=== PATIENT | female | born 1940 | race Caucasian/White ===

== ENCOUNTER 2019-05-20 12:25 | Outpatient (CLI) | payer MEDICARE, OTHER ==
[2019-05-20 17:47] LABS: HGB - HEMOGLOBIN 14.7 g/dL (12.0-16.0); MEAN CORPUSCULAR HGB CONC 33.4 g/dL (32.0-36.0); MEAN CORPUSCULAR VOLUME 95.7 fL (81.0-99.0); MEAN PLATELET VOLUME 11.9 fL (7.9-10.8); RED BLOOD COUNT 4.6 10^6/uL (4.20-5.40); RED CELL DISTRIBUTION WIDTH 12.8 % (12.0-15.0); WHITE BLOOD COUNT 5.9 x10^3/uL (4.8-10.8)
[2019-05-20 18:53] LABS: RHEUMATOID FACTOR NEGATIVE (Negative)
[2019-05-23 14:52] LABS: ANA SCREEN NEGATIVE (NEGATIVE)
== END 2019-05-20 12:26 | disposition home or self-care (01) ==
LOC: LAB.S 12:25
PROVIDERS: ATTEND Nurse Practitioner
DX: M35.3 Polymyalgia rheumatica (principal)
CPT/HCPCS: 36415; 85027; 85651; 86038; 86140; 86200; 86430

== ENCOUNTER 2019-06-20 08:00 | Outpatient (CLI) | payer MEDICARE, OTHER ==
[2019-06-20 20:18] LABS: BILIRUBIN,URINE NEGATIVE (NEGATIVE); GLUCOSE, URINE (UA) NEGATIVE (NEGATIVE); KETONES,URINE (UA) NEGATIVE (NEGATIVE); LEUKOCYTE ESTERASE, URINE TRACE (NEGATIVE); NITRITE,URINE NEGATIVE (NEGATIVE); OCCULT BLOOD,URINE NEGATIVE (NEGATIVE); PROTEIN,URINE NEGATIVE (NEGATIVE); UROBILINOGEN,URINE 0.2 (NORMAL) E.U./dL (NORMAL)
[2019-06-20 20:30] LABS: CLARITY,URINE HAZY (CLEAR)
[2019-06-20 20:34] LABS: RBC,URINE 0-5 /HPF (0-5); SQUAMOUS EPITHELIAL CELL,UR MOD Squamous (<= Few)
[2019-06-20 20:35] LABS: BACTERIA,URINE Rare /HPF (None Seen)
== END 2019-06-20 08:01 | disposition home or self-care (01) ==
LOC: LAB.R 08:00
PROVIDERS: ATTEND Nurse Practitioner
DX: N39.0 Urinary tract infection, site not specified (principal)
CPT/HCPCS: 81001; 87086

== ENCOUNTER 2019-07-07 14:21 | Outpatient (CLI) | payer MEDICARE, OTHER ==
--- NOTE | 2019-07-07 15:39 | MRI Report ---
Reason: DEGENERATIVE DISC DISEASE LUMBAR SPINE, BACK PAIN Procedure Date: 07/07/2019 Accession Number: [id number] / [id number] Procedure: MRI - Lumbar Spine W/O CPT Code: FULL RESULT: EXAM: MRI LUMBAR SPINE WITHOUT CONTRAST EXAM DATE: 07/07/2019 03:02 PM. CLINICAL HISTORY: 79-year-old female. DEGENERATIVE DISC DISEASE LUMBAR SPINE, BACK PAIN. COMPARISON: None. TECHNIQUE: Multiplanar, multisequence T1-weighted and fluid-sensitive sequences of the lumbar spine from T12 to S1 without contrast. Other: None. FINDINGS: Spinal Canal: The conus terminates at L1. The conus medullaris and cauda equina are unremarkable. Alignment: Rotatory levoscoliosis of the lumbar spine, Villalba angle 18 degrees. Grade 2 anterolisthesis L5 on S1 measuring 11 mm, likely due to bilateral L5 pars fractures. Grade 1 anterolisthesis L4 on L5 measuring 5 mm. Grade 1 retrolisthesis L2 on L3 measuring 2 mm. Grade 1 retrolisthesis L1 on L2 measuring 2 mm. Grade 1 retrolisthesis of T12 on L1 measuring 2 mm. Bone Marrow: Five [id number] lumbar vertebral bodies are assumed. No gross fractures or bone lesions. Modic type I degenerative endplate changes with endplate edema at T11-T12, L1-L2, and L3-L4 levels. There is edema involving the L3-L4 facet joints bilaterally and L4-L5 facet joints bilaterally. Disk Levels/Facets: T9-T10: Severe disk height loss and desiccation with mild diffuse disk posterior. No significant central canal narrowing. Moderate left foraminal narrowing. No right foraminal narrowing. T10-T11: Moderate to severe disk height loss and desiccation. Mild diffuse disk bulge. No significant central canal narrowing. Moderate left foraminal narrowing. No right foraminal narrowing. T11-T12: Moderate to severe disk height loss and desiccation. Mild diffuse disk bulge. No significant central canal narrowing. Moderate severe left foraminal narrowing. No right foraminal narrowing. T12-L1: Moderate to severe disk height loss and desiccation. Mild diffuse disk bulge. No significant central canal narrowing. Mild to moderate right foraminal narrowing. No left foraminal narrowing. L1-L2: Severe disk height loss and desiccation. Mild to moderate diffuse disk posterior with superimposed right far lateral disk osteophyte complex. Moderate right facet arthropathy. Mild central canal narrowing. Moderate right foraminal narrowing. No left foraminal narrowing. L2-L3: Severe disk height loss and desiccation. Mild diffuse disk post with endplate spurring. Mild bilateral facet arthropathy. Mild central canal narrowing. Mild to moderate bilateral foraminal narrowing. L3-L4: Severe disk height loss and desiccation. Moderate disk bulge with endplate spurring. Moderate to severe bilateral facet arthropathy. Moderate to severe central canal narrowing. Moderate to severe left and moderate right foraminal narrowing. L4-L5: Moderate disk height loss and desiccation of moderate diffuse disk bulge. Severe bilateral facet arthropathy. Mild to moderate central canal narrowing. Severe bilateral foraminal narrowing. L5-S1: Severe disk height loss and desiccation. Moderate posterior disk osteophyte complex. Severe bilateral facet arthropathy. Moderate central canal narrowing. Moderate bilateral foraminal narrowing. Musculature: Moderate fatty atrophy of the paraspinal musculature. Other: The partially visualized retroperitoneum is unremarkable. IMPRESSION: 1. Severe multilevel degenerative spondylosis, as detailed above and summarized below. No evidence of acute fracture. No cord signal abnormality. 2. Rotatory levoscoliosis of the lumbar spine, Villalba angle 18 degrees. 3. Grade 2 anterolisthesis L5 on S1 measuring 11 mm, likely due to bilateral L5 pars fractures. Grade 1 anterolisthesis L4 on L5 measuring 5 mm. Grade 1 retrolisthesis L2 on L3 measuring 2 mm. Grade 1 retrolisthesis L1 on L2 measuring 2 mm. Grade 1 retrolisthesis of T12 on L1 measuring 2 mm. 4. Modic type I degenerative endplate changes with endplate edema at T11-T12, L1-L2, and L3-L4 levels. Modic type I changes may represent a source of pain. 5. There is edema involving the L3-L4 facet joints bilaterally and L4-L5 facet joints bilaterally. In the absence of signs and symptoms of infection, this is likely on the basis of degenerative change and may represent a source of pain. 6. T9-T10: No significant central canal narrowing. Moderate left foraminal narrowing. No right foraminal narrowing. 7. T10-T11: No significant central canal narrowing. Moderate left foraminal narrowing. No right foraminal narrowing. 8. T11-T12: No significant central canal narrowing. Moderate severe left foraminal narrowing. No right foraminal narrowing. 9. T12-L1: No significant central canal narrowing. Mild to moderate right foraminal narrowing. No left foraminal narrowing. 10. L1-L2: Mild central canal narrowing. Moderate right foraminal narrowing. No left foraminal narrowing. 11. L2-L3: Mild central canal narrowing. Mild to moderate bilateral foraminal narrowing. 12. L3-L4: Moderate to severe central canal narrowing. Moderate to severe left and moderate right foraminal narrowing. 13. L4-L5: Mild to moderate central canal narrowing. Severe bilateral foraminal narrowing. 14. 5-S1: Moderate central canal narrowing. Moderate bilateral foraminal narrowing. Comment: The following findings are so common in adults without low back pain that while we report their presence, they must be interpreted with caution and in the context of the clinical situation. (Reference Elainek et al, Spine 2001) Prevalence of findings in patients without low back pain: Disk degeneration (any evidence): 92% Disk desiccation/T2 signal loss: 83% Disk height loss: 56% Disk bulge: 64% Disk protrusion: 32% Annular tear/high intensity zone: 38% RADIA
== END 2019-07-07 14:22 | disposition home or self-care (01) ==
LOC: DI 14:21
PROVIDERS: ATTEND Nurse Practitioner
DX: M51.36 Other intervertebral disc degeneration, lumbar region (principal); M51.34 Other intervertebral disc degeneration, thoracic region; M48.04 Spinal stenosis, thoracic region; M48.061 Spinal stenosis, lumbar region without neurogenic claudication; M47.816 Spondylosis without myelopathy or radiculopathy, lumbar region; M43.16 Spondylolisthesis, lumbar region; M41.9 Scoliosis, unspecified; R60.0 Localized edema
CPT/HCPCS: 72148

== ENCOUNTER 2019-08-07 07:18 | Day surgery (SDC) | payer MEDICARE, OTHER ==
[~2019-08-07 07:18] MED LIST: CYCLOPENTOLATE 1% OPHTH DROPS 2 ML ONE; KETOROLAC 0.45% OPHTH DROPS ONE; PHENYLEPHRINE 2.5% OPHTH 2 ML DROPS ONE; PROPARACAINE 0.5% OPHTH DROPS 15 ML ONE
[2019-08-07] MEDS ORDERED: TIMOLOL 0.5% OPHTH DROPS ONE (07:19)
[2019-08-07] MEDS ORDERED: BRIMONIDINE 0.2% OPHTH DROPS 5 ML ONE (07:19)
[2019-08-07] MEDS ORDERED: BSS/LIDOCAINE/EPINEPHRINE 1 ML SYRINGE ONE (07:19)
[2019-08-07] MEDS ORDERED: TRIAMCIN/MOXIFLOX OPHTHALMIC 0.6 ML VIAL IO ONE (07:19)
[2019-08-07] MEDS ORDERED: MIDAZOLAM 2 MG/2 ML VIAL IVP ONE (07:19)
[2019-08-07] MEDS ORDERED: fentaNYL 100 MCG/2 ML VIAL IVP ONE (07:19)
[2019-08-07] MEDS ORDERED: VANCOMYCIN OPHTHALMI 8MG/0.8ML 8 MG/0.8 ML SYRINGE IO ONE (07:20)
[2019-08-07] MEDS ORDERED: KETOROLAC 0.45% OPHTH DROPS LEFTEYE ONE (07:35)
[2019-08-07] MEDS ORDERED: CYCLOPENTOLATE 1% OPHTH DROPS 2 ML LEFTEYE ONE (07:35)
[2019-08-07] MEDS ORDERED: PROPARACAINE 0.5% OPHTH DROPS 15 ML LEFTEYE ONE ×2 (07:35→08:23)
[2019-08-07] MEDS ORDERED: PHENYLEPHRINE 2.5% OPHTH 2 ML DROPS LEFTEYE ONE (07:35)
--- NOTE | 2019-08-07 07:43 | ANESTHESIA ---
Pre-Anesthesia VS, & Labs - Diagnosis L nuclear sclerotic cataract - Procedure L extraction cataract w/IOL Vital Signs: Temp Pulse Resp BP Pulse Ox 36.1 C L 71 16 169/74 H 97 08/07/19 07:28 08/07/19 07:28 08/07/19 07:28 08/07/19 07:28 08/07/19 07:28 Height 4 ft 10 in Weight (kg) 58 kg - NPO >8 hours Last Fluid Intake: BP meds with sips H20 @06 - Is Patient ?: No Home Medications and Allergies Allergies/Adverse Reactions: Allergies Allergy/AdvReac Type Severity Reaction Status Date / Time cefuroxime [From Ceftin] Allergy Rash Verified 08/06/19 12:58 ciprofloxacin [From Cipro] Allergy Rash Verified 08/06/19 12:58 Anes History & Medical History - Anesthetic History Anesthesia Complications: reports: No previous complications Family history of Anesthesia Complications: Denies Family history of Malignant Hyperthermia: Denies - Medical History Cardiovascular: reports: Hypertension Pulmonary: reports: None Gastrointestinal: reports: Diverticulitis Urinary: reports: None Musculoskeletal: reports: Osteoarthritis, Chronic back pain Endocrine/Autoimmune: reports: None Skin: reports: None - Surgical History General: Colonoscopy, Other Gynecologic: section, Hysterectomy, Other Orthopedic: Knee replacement, Other Exam General: Alert, Oriented x3, Cooperative Dental: WNL Mouth Openin Fingerbreadth Neck Mobility: Normal Mallampati classification: II Thyromental Distance: 4-6 cm Respiratory: Lungs clear, Normal breath sounds, No respiratory distress Cardiovascular: Regular rate (pt states HR is usually irreg. Regular this AM on auscultation) Neurological: Normal speech Mental/Cognitive Status: Alert/Oriented X3, Normal for patient Cognitive Status: Within normal limits Plan Anesthesia Type: MAC Consent for Procedure(s) Verified and Reviewed: Yes Code Status: Attempt Resuscitation ASA classification: 2-Mild systemic disease Is this case an emergency?: No
[2019-08-07] MEDS ORDERED: LACTATED RINGERS 500 ML IV ONE (07:49)
[2019-08-07] MEDS ORDERED: BRIMONIDINE 0.2% OPHTH DROPS 5 ML OPTH ONE (08:30)
[2019-08-07] MEDS ORDERED: EPINEPHrine 1 MG/ML AMP IVP ONE (08:30)
[2019-08-07] MEDS ORDERED: CHONDR SULF/HYALURONATE SYRINGE IO ONE (08:31)
[2019-08-07] MEDS ORDERED: BSS/LIDOCAINE/EPINEPHRINE 1 ML SYRINGE IO ONE (08:31)
[2019-08-07] MEDS ORDERED: TIMOLOL 0.5% OPHTH DROPS OPTH ONE (08:31)
[2019-08-07 09:09] VITALS: BP 143/65
--- NOTE | 2019-08-07 16:00 | OPERATIVE REPORT ---
DATE OF SERVICE: 08/07/2019 Physician: Frandy Daniel MD PREOPERATIVE DIAGNOSIS: Visually significant cataract, left eye. This was her first cataract surger y. POSTOPERATIVE DIAGNOSIS: Visually significant cataract, left eye. This was her first cataract surge ry. PROCEDURE: Phacoemulsification with posterior chamber intraocular lens implant, left eye. SURGEON: Frandy Daniel MD ANESTHESIA: Monitored anesthesia care. COMPLICATIONS: None. OPERATIVE INDICATIONS: This is a 79-year-old woman with progressive vision loss in the left eye due to 3+ nuclear sclerotic cataract. Best corrected visual acuity was 20/50 with glare to hand motion v ision in the left eye. Indications for surgery were overall decrease in vision, difficulty seeing wo rds on the computer screen, difficulty reading, difficulty seeing words, closed caption or game score s on TV, difficulty driving in low light or at night, difficulty driving at night because of headligh ts from other vehicles, and difficulty with glare or bright lights in any situation. She was consent ed at length concerning risks and benefits of cataract surgery, after which she expressed a desire to proceed with surgery. OPERATIVE PROCEDURE: The patient was taken to OR #3 and placed under monitored anesthesia care. Jairo gical timeout was conducted confirming correct patient, correct procedure, and correct surgical site. She was given topical anesthesia, and prepped and draped in the usual sterile fashion. The eye was entered at the 6 and 3 o'clock positions. Intracameral Shugarcaine was injected into the anterior c hamber, followed by Viscoat. A continuous-tear curvilinear capsulorrhexis was performed. Nucleus wa s hydrodissected and phacoemulsified. The cortex was evacuated using automated infusion and aspirati on. Provisc was injected in the capsular bag, and a 23.5 diopter intraocular lens inserted in the ba g. Approximately 0.25 mL of a mixture of triamcinolone and moxifloxacin was injected inserted throug h this transsclerally into the vitreous. An additional 0.55 mL of a mixture of triamcinolone, moxifl oxacin and vancomycin was injected subconjunctivally in the superior quadrant for infection and infla mmation prophylaxis. I and A was used to evacuate the viscoelastic materials. The eye was inflated to physiologic pressure using balanced salt solution and found to be watertight. The patient was paz en from the operating room in good condition and given postoperative instructions. TD: 08/07/2019 08:49
== END 2019-08-07 07:19 | disposition home or self-care (01) ==
LOC: SDS 07:18
PROVIDERS: ATTEND Ophthalmology
PROC: 08RK3JZ Replacement of Left Lens with Synthetic Substitute, Percutaneous Approach (ICD-10-PCS; principal; 2019-08-07 08:30)
DX: H25.12 Age-related nuclear cataract, left eye (principal); I10 Essential (primary) hypertension; M19.90 Unspecified osteoarthritis, unspecified site; G89.29 Other chronic pain; M54.9 Dorsalgia, unspecified; K58.9 Irritable bowel syndrome, unspecified; Z96.659 Presence of unspecified artificial knee joint; E78.00 Pure hypercholesterolemia, unspecified; Z85.3 Personal history of malignant neoplasm of breast
CPT/HCPCS: 66984; A9270; J3490; V2632

== ENCOUNTER 2019-10-09 06:05 | Day surgery (SDC) | payer MEDICARE, OTHER ==
[2019-10-09] MEDS ORDERED: fentaNYL 100 MCG/2 ML VIAL IVP ONE (06:06)
[2019-10-09] MEDS ORDERED: MIDAZOLAM 2 MG/2 ML VIAL IVP ONE (06:06)
[2019-10-09] MEDS ORDERED: LACTATED RINGERS 500 ML IV ONE (06:29)
[2019-10-09] MEDS ORDERED: KETOROLAC 0.45% OPHTH DROPS ONE (06:41)
[2019-10-09] MEDS ORDERED: PHENYLEPHRINE 2.5% OPHTH 2 ML DROPS ONE (06:41)
[2019-10-09] MEDS ORDERED: CYCLOPENTOLATE 1% OPHTH DROPS 2 ML ONE (06:42)
[2019-10-09] MEDS ORDERED: PROPARACAINE 0.5% OPHTH DROPS 15 ML ONE (06:42)
[2019-10-09] MEDS ORDERED: KETOROLAC 0.45% OPHTH DROPS RIGHTEYE ONE (06:45)
[2019-10-09] MEDS ORDERED: PROPARACAINE 0.5% OPHTH DROPS 15 ML RIGHTEYE ONE (06:45)
[2019-10-09] MEDS ORDERED: CYCLOPENTOLATE 1% OPHTH DROPS 2 ML RIGHTEYE ONE (06:45)
[2019-10-09] MEDS ORDERED: PHENYLEPHRINE 2.5% OPHTH 2 ML DROPS RIGHTEYE ONE (06:45)
[2019-10-09] MEDS ORDERED: TIMOLOL 0.5% OPHTH DROPS ONE (07:06)
[2019-10-09] MEDS ORDERED: BSS/LIDOCAINE/EPINEPHRINE 1 ML SYRINGE ONE (07:06)
[2019-10-09] MEDS ORDERED: BRIMONIDINE 0.2% OPHTH DROPS 5 ML ONE (07:06)
[2019-10-09] MEDS ORDERED: VANCOMYCIN OPHTHALMI 8MG/0.8ML 8 MG/0.8 ML SYRINGE IO ONE ×2 (07:06→07:40)
[2019-10-09] MEDS ORDERED: TRIAMCIN/MOXIFLOX OPHTHALMIC 0.6 ML VIAL IO ONE ×2 (07:06→07:40)
--- NOTE | 2019-10-09 07:07 | ANESTHESIA ---
Pre-Anesthesia VS, & Labs - Diagnosis Right nuclear sclerotic cataract - Procedure Right phaco with IOL implant Vital Signs: Temp Pulse Resp BP Pulse Ox 36.3 C L 70 16 177/93 H 99 10/09/19 06:34 10/09/19 06:34 10/09/19 06:34 10/09/19 06:34 10/09/19 06:34 Height 4 ft 11 in Weight (kg) 58.9 kg - NPO Other (0430 water with meds) - Is Patient ?: Not Applicable - Lab Results Lab results reviewed: No Home Medications and Allergies Albuterol 1 PRN 08/07/19 Bisoprolol/Hydrochlorothiazide [Bisoprolol-Hctz 10-6.25 mg Tab] 1 tab PO DAILY 08/07/19 Celecoxib [CeleBREX] 200 mg PO DAILY 08/07/19 Chlordiazepoxide/Clidinium Br [Librax Capsule] 1 PRN 08/07/19 Cholecalciferol (Vitamin D3) [Vitamin D3] 1 tab PO DAILY 08/07/19 Pravastatin [Pravachol] 1 tab PO DAILY 08/07/19 hydroCHLOROthiazide [Hydrochlorothiazide] 1 tab PO DAILY 08/07/19 traMADol [Ultram] 0.5 mg PO DAILY 08/07/19 Allergies/Adverse Reactions: Allergies Allergy/AdvReac Type Severity Reaction Status Date / Time cefuroxime [From Ceftin] Allergy Rash Verified 08/06/19 12:58 ciprofloxacin [From Cipro] Allergy Rash Verified 08/06/19 12:58 Anes History & Medical History - Anesthetic History Anesthesia Complications: reports: No previous complications Family history of Anesthesia Complications: Denies Family history of Malignant Hyperthermia: Denies - Medical History Cardiovascular: reports: Hypertension Pulmonary: reports: None Gastrointestinal: reports: Diverticulitis Urinary: reports: None Neuro: reports: None Musculoskeletal: reports: Osteoarthritis, Chronic back pain Endocrine/Autoimmune: reports: None Blood Disorders: reports: None Skin: reports: None Smoking Status: Never smoker Psychosocial: reports: No issues indicated - Surgical History General: Colonoscopy, Other Eyes Ears Nose Throat (EENT): Cataracts Gynecologic: section, Hysterectomy, Other Orthopedic: Knee replacement, Other Exam General: Alert, Oriented x3, Cooperative Dental: WNL Mouth Opening: Greater than 4 Fingerbreadths Neck Mobility: Normal Mallampati classification: I Thyromental Distance: greater than 6 cm Cardiovascular: Regular rate Mental/Cognitive Status: Alert/Oriented X3 Cognitive Status: Within normal limits Plan Anesthesia Type: MAC Consent for Procedure(s) Verified and Reviewed: Yes Code Status: Attempt Resuscitation ASA classification: 2-Mild systemic disease Is this case an emergency?: No
[2019-10-09] MEDS ORDERED: BRIMONIDINE 0.2% OPHTH DROPS 5 ML OPTH ONE (07:38)
[2019-10-09] MEDS ORDERED: EPINEPHrine 1 MG/ML AMP IVP ONE (07:39)
[2019-10-09] MEDS ORDERED: CHONDR SULF/HYALURONATE SYRINGE IO ONE (07:39)
[2019-10-09] MEDS ORDERED: TIMOLOL 0.5% OPHTH DROPS OPTH ONE (07:39)
[2019-10-09] MEDS ORDERED: BSS/LIDOCAINE/EPINEPHRINE 1 ML SYRINGE IO ONE (07:40)
[2019-10-09 08:05] VITALS: BP 136/71
--- NOTE | 2019-10-09 09:10 | OPERATIVE REPORT ---
DATE OF SERVICE: 10/09/2019 Physician: Frandy Daniel MD PREOPERATIVE DIAGNOSIS: Visually significant cataract, right eye. Cataract surgery was performed on the left eye on 08/07/2019. POSTOPERATIVE DIAGNOSIS: Visually significant cataract, right eye. Cataract surgery was performed o n the left eye on 08/07/2019. PROCEDURE: Phacoemulsification with posterior chamber intraocular lens implant, right eye. SURGEON: Frandy Daniel MD ANESTHESIA: Monitored anesthesia care. COMPLICATIONS: None. OPERATIVE INDICATIONS: This is a 79-year-old woman with progressive vision loss in the right eye due to 3+ nuclear sclerotic cataract. Best corrected visual acuity was 20/50, with glare to 20/200 in t he right eye. Indications for surgery are overall decrease in vision, difficulty seeing words on a [employer] screen, difficulty reading, difficulty seeing words, closed caption or game scores on TV, dif ficulty seeing street signs, difficulty driving in low light or at night, difficulty driving at night because of headlights from other vehicles, and difficulty with glare or bright lights in any situati on. She was consented at length concerning risks and benefits of cataract surgery, after which she e xpressed a desire to proceed with surgery. OPERATIVE PROCEDURE: Patient was taken to OR #3 and placed under monitored anesthesia care. A surgi manpreet timeout was conducted confirming correct patient, correct procedure, and correct surgical site. She was given topical anesthesia, and prepped and draped in the usual sterile fashion. The eye was e ntered at the 12 and 9 o'clock positions. Intracameral Shugarcaine was injected into the anterior ch manfred, followed by Viscoat. A continuous-tear curvilinear capsulorrhexis was performed. The nucleus was hydrodissected and phacoemulsified. The cortex was evacuated using automated infusion and aspir ation. Provisc was injected in the capsular bag, and a 24.5 diopter intraocular lens was inserted in the bag. I and A was used to evacuate the viscoelastic materials. The eye was inflated to physiolo gic pressure using balanced salt solution and found to be watertight. Approximately 0.25 mL of a mix ture of triamcinolone, moxifloxacin was injected transsclerally into the vitreous in the inferotempor al quadrant. An additional 0.55 mL of a mixture of triamcinolone, moxifloxacin and vancomycin was in jected subconjunctivally in the superior quadrant for infection and inflammation prophylaxis. The wo und integrity was checked with Weck-Misa sponges. Patient was taken from the operating room in good c ondition and given postoperative instructions. TD: 10/09/2019 08:01
== END 2019-10-09 06:06 | disposition home or self-care (01) ==
LOC: SDS 06:05
PROVIDERS: ATTEND Ophthalmology
PROC: 08RJ3JZ Replacement of Right Lens with Synthetic Substitute, Percutaneous Approach (ICD-10-PCS; principal; 2019-10-09 07:30)
DX: H25.11 Age-related nuclear cataract, right eye (principal); I10 Essential (primary) hypertension; Z85.3 Personal history of malignant neoplasm of breast; Z98.42 Cataract extraction status, left eye
CPT/HCPCS: 66984; A9270; J3490; V2632

== ENCOUNTER 2020-04-06 13:43 | Outpatient (CLI) | payer MEDICARE, OTHER | END 2020-04-06 13:44 | disposition home or self-care (01) | LOC: LAB 13:43 | PROVIDERS: ATTEND Nurse Practitioner | DX: Z11.59 Encounter for screening for other viral diseases (principal) | CPT/HCPCS: 36415; 86769 ==

== ENCOUNTER 2020-05-17 09:17 | Outpatient (CLI) | payer MEDICARE, OTHER ==
[2020-05-17 15:05] LABS: BASOPHILS % (AUTO) 0.7 %; EOSINOPHILS # (AUTO) 0.1 10^3/uL (0.0-0.7); EOSINOPHILS % (AUTO) 1.5 %; LYMPHOCYTES # (AUTO) 1.3 10^3/uL (1.5-3.5); LYMPHOCYTES % (AUTO) 28.6 %; MEAN CORPUSCULAR HEMOGLOBIN 32.1 pg (27.0-31.0); MEAN CORPUSCULAR HGB CONC 32.5 g/dL (32.0-36.0); MEAN CORPUSCULAR VOLUME 98.9 fL (81.0-99.0); MEAN PLATELET VOLUME 11.7 fL (7.9-10.8); MONOCYTES # (AUTO) 0.5 10^3/uL (0.0-1.0); MONOCYTES % (AUTO) 10.4 %; NEUTROPHILS # (AUTO) 2.7 10^3/uL (1.5-6.6); NEUTROPHILS % (AUTO) 58.4 %; PLT - PLATELET COUNT 266 10^3/uL (130-450); RED BLOOD COUNT 4.36 10^6/uL (4.20-5.40); WHITE BLOOD COUNT 4.6 x10^3/uL (4.8-10.8)
[2020-05-17 15:46] LABS: ALBUMIN 4.2 g/dL (3.2-5.5); ALBUMIN/GLOBULIN RATIO 1.7 (1.0-2.2); ALKALINE PHOSPHATASE 57 IU/L (42-121); ALT ALANINE AMINOTRANSFERASE 11 IU/L (10-60); AST ASPARTATE AMINOTRANSFERASE 15 IU/L (10-42); BILIRUBIN,TOTAL 0.7 mg/dL (0.2-1.0); BUN - BLOOD UREA NITROGEN 19 mg/dL (6-20); CALCIUM 9.1 mg/dL (8.5-10.3); CARBON DIOXIDE - CO2 30 mmol/L (21-32); CHLORIDE 97 mmol/L (101-111); CHOLESTEROL 182 mg/dL; CREATININE 0.7 mg/dL (0.4-1.0); GLUCOSE 102 mg/dL (70-100); HDL CHOLESTEROL 60 mg/dL; LDL CHOLESTEROL,CALCULATED 106 mg/dL; LDL/HDL RATIO 1.8 (<4.4); SODIUM 140 mmol/L (135-145); TOTAL PROTEIN 6.7 g/dL (6.7-8.2); VLDL CHOLESTEROL 16 mg/dL
== END 2020-05-17 09:18 | disposition home or self-care (01) ==
LOC: LAB.S 09:17
PROVIDERS: ATTEND Nurse Practitioner
DX: E78.5 Hyperlipidemia, unspecified (principal); M15.9 Polyosteoarthritis, unspecified; Z85.3 Personal history of malignant neoplasm of breast; M35.3 Polymyalgia rheumatica; I10 Essential (primary) hypertension; D03.9 Melanoma in situ, unspecified
CPT/HCPCS: 36415; 80053; 80061; 83721; 84443; 85025

== ENCOUNTER 2020-06-14 08:58 | Outpatient (CLI) | payer MEDICARE, OTHER ==
--- NOTE | 2020-06-14 18:11 | DEXA Report ---
PROCEDURE: Dexa Spine and/or Hip INDICATIONS: POST MENOPAUSAL TECHNIQUE: Dual energy x-ray absorptiometry (DXA) was performed on a Intern System. Regions measur ed are the AP Spine, femoral neck, and if needed forearm. COMPARISON: None. FINDINGS: Lumbar Spine: Bone Mineral Density 1.560 g/cm/cm,T score 3.2, normal Left Hip: Bone Mineral Density 0.912 g/cm/cm,T score -0.8, normal Left Femoral Neck: Bone Mineral Density 0.790 g/cm/cm, T score -1.8, osteopenia (T score greater or equal to -1.0: NORMAL) (T score from -1.1 to -2.4: OSTEOPENIA) (T score less than or equal to -2.5 to: OSTEOPOROSIS) Impression: Normal bone mineral density at the lumbosacral spine and left hip., And there is osteopen ia at the left femoral neck. Patients with diagnosis of osteoporosis or osteopenia should have regular bone mineral density assess ment. For those eligible for Medicare, routine testing is allowed once every 2 years. Testing frequ ency can be increased for patients who have rapidly progressing disease or for those who are receivin g medical therapy to restore bone mass. Reviewed by: Servando Gallego MD on 06/14/2020 10:43 AM PDT Approved by: Servando Gallego MD on 06/14/2020 10:43 AM PDT Station ID: [id number]
== END 2020-06-14 08:59 | disposition home or self-care (01) ==
LOC: DI 08:58
PROVIDERS: ATTEND Nurse Practitioner
DX: M85.88 Other specified disorders of bone density and structure, other site (principal)
CPT/HCPCS: 77080

== ENCOUNTER 2020-06-14 08:59 | Outpatient (CLI) | payer MEDICARE, OTHER ==
--- NOTE | 2020-06-16 07:17 | Mammography Report ---
BILATERAL DIGITAL SCREENING MAMMOGRAM 3D/2D: 06/14/2020 CLINICAL: Routine screening. Personal history of left breast cancer. Comparison is made to exams dated: 12/25/2018 mammogram and 12/05/2017 mammogram - [facility]. There are scattered fibroglandular elements in both breasts. There are benign post operative findings in the left breast. No significant masses, calcifications, or other findings are seen in either breast. There has been no significant interval change. IMPRESSION: BENIGN There is no mammographic evidence of malignancy. A 1 year screening mammogram is recommended. This exam was interpreted at Station ID: [id number]. NOTE: For mammograms, a report in lay terms will be sent to the patient. Approximately 15% of breast malignancies will not be visualized mammographically. In the management of a palpable breast mass, a negative mammogram must not discourage biopsy of a clinically suspicious lesion. Electronically Signed By: Olvin Pena M.D. aty/penrad:06/14/2020 11:01:02 ACR BI-RADS Category 2: Benign Finding(s) 3342F PARENCHYMAL PATTERN: (A) - The breast(s) demonstrate(s) scattered fibroglandular densities. BI-RADS CATEGORY: (2) - 2 RECOMMENDATION: (ANNUAL) - Recommend routine annual screening mammography. [id number] 1 year screening LATERALITY: (B)
== END 2020-06-14 09:00 | disposition home or self-care (01) ==
LOC: DI 08:59
DX: Z12.31 Encounter for screening mammogram for malignant neoplasm of breast (principal); Z85.3 Personal history of malignant neoplasm of breast
CPT/HCPCS: 77063; 77067

== ENCOUNTER 2020-07-30 09:16 | Outpatient (CLI) | payer MEDICARE, OTHER ==
--- NOTE | 2020-07-30 15:38 | Ultrasound Report ---
PROCEDURE: Carotid Doppler Complete INDICATIONS: TIA TECHNIQUE: Color and pulse Doppler interrogation was performed of both carotid systems, with image documentation and velocity measurements. COMPARISON: None. FINDINGS: Right side: Common carotid artery peak systolic velocity: 52 cm/sec. Internal carotid artery peak systolic velocity: 92 cm/sec. Internal carotid artery end diastolic velocity: 29 cm/sec. External carotid artery peak systolic velocity: 56 cm/sec. ICA/CCA peak systolic ratio: 1.8 . Machado scale imaging description: Mild soft plaque Percent internal carotid artery stenosis: Less than 50% stenosis . Vertebral artery: Flow direction is antegrade. Left side: Common carotid artery peak systolic velocity: 49 cm/sec. Internal carotid artery peak systolic velocity: 136 cm/sec. Internal carotid artery end diastolic velocity: 42 cm/sec. External carotid artery peak systolic velocity: 38 cm/sec. ICA/CCA peak systolic ratio: 2.8 . Machado scale imaging description: Mild soft plaque Percent internal carotid artery stenosis: 50-69% stenosis . Vertebral artery: Flow direction is antegrade. IMPRESSION: Less than 50% stenosis on the right. Mildly elevated proximal internal carotid artery systolic peak v elocity within estimated 50-69% stenosis on the left. The estimate of stenosis included in the report of the imaging study was calculated using the NASCET method Reviewed by: Servando Gallego MD on 07/30/2020 3:36 PM PDT Approved by: Servando Gallego MD on 07/30/2020 3:36 PM PDT Station ID: [id number]
== END 2020-07-30 09:17 | disposition home or self-care (01) ==
LOC: DI 09:16
PROVIDERS: ATTEND Family Medicine
DX: G45.9 Transient cerebral ischemic attack, unspecified (principal); Z79.899 Other long term (current) drug therapy
CPT/HCPCS: 36415; 80053; 93880

== ENCOUNTER 2020-07-30 12:29 | Outpatient (CLI) | payer MEDICARE, OTHER ==
[2020-07-30 12:55] LABS: ALBUMIN 4.1 g/dL (3.2-5.5); ALBUMIN/GLOBULIN RATIO 1.5 (1.0-2.2); BILIRUBIN,TOTAL 0.7 mg/dL (0.2-1.0); CALCIUM 9.3 mg/dL (8.5-10.3); CREATININE 0.7 mg/dL (0.4-1.0); TOTAL PROTEIN 6.8 g/dL (6.7-8.2)
== END 2020-07-30 12:30 | disposition home or self-care (01) ==
LOC: LAB 12:29
PROVIDERS: ATTEND Nurse Practitioner
DX: Z79.899 Other long term (current) drug therapy (principal)
CPT/HCPCS: 36415; 80053

== ENCOUNTER 2020-08-07 13:48 | Outpatient (CLI) | payer MEDICARE, OTHER ==
[2020-08-07] MEDS ORDERED: GADOBUTROL 7.5 MMOL/7.5 ML VIAL ONE (14:46)
[2020-08-07] MEDS ORDERED: GADOBUTROL 7.5 MMOL/7.5 ML VIAL IVP ONE (14:48)
--- NOTE | 2020-08-09 09:58 | MRI Report ---
PROCEDURE: Brain W/WO INDICATIONS: TIA CONTRAST: IV CONTRAST: Gadavist ml: 6 TECHNIQUE: Noncontrast axial T1 spin echo, axial T2 fast spin echo, sagittal and axial FLAIR, coronal T2 fast sp in echo, axial gradient echo, axial diffusion and ADC through the brain. After the administration of contrast, axial and coronal T1 spin echo with fat saturation through the brain. COMPARISON: None. FINDINGS: Image quality: Excellent. CSF spaces: Basal cisterns are patent. No extra-axial fluid collections. Ventricles are normal in size and shape. Brain: No midline shift. No intracranial bleeds or masses. No abnormal intracranial enhancement. There is mild cerebral volume loss for age. There is mild to moderate periventricular white matter c hronic small vessel ischemic change. The brainstem appears normal. Diffusion-weighted images demons trate no acute ischemic insults. No chronic ischemic insults. No abnormal GRE weighted artifact in t he brain parenchyma. Normal intravascular flow voids are present. Dural sinuses demonstrate normal po stcontrast enhancement. Skull and face: Calvarial marrow is normal in signal. Orbits appear normal. Sinuses: Sinuses and mastoids appear clear. IMPRESSION: 1. No acute intracranial disease process. 2. No areas of acute or chronic infarction. 3. No abnormal intracranial mass or suspicious postcontrast enhancement. 4. Mild, diffuse cerebral volume loss. 5. Mild to moderate periventricular and subcortical white matter chronic microvascular ischemic thibodeaux e. Reviewed by: Roma Kay MD, PhD on 08/09/2020 9:57 AM [facility] Approved by: Roma Kay MD, PhD on 08/09/2020 9:57 AM [facility] Station ID: [id number]
== END 2020-08-07 13:49 | disposition home or self-care (01) ==
LOC: DI 13:48
PROVIDERS: ATTEND Family Medicine
DX: G45.9 Transient cerebral ischemic attack, unspecified (principal); I67.82 Cerebral ischemia
CPT/HCPCS: 70553; A9585

== ENCOUNTER 2020-10-16 14:22 | Outpatient (CLI) | payer MEDICARE, OTHER ==
--- NOTE | 2020-10-16 16:35 | Ultrasound Report ---
PROCEDURE: Pelvic w/Transvaginal INDICATIONS: VAGINAL DISCHARGE TECHNIQUE: Real-time scanning was performed of the pelvic organs, with image documentation. Additional endovagi nal scanning was necessary due to incomplete visualization of the adnexal and endometrial structures by transabdominal scanning. COMPARISON: None. FINDINGS: Transabdominal scanning: Limited scanning through the kidneys shows no hydronephrosis. No pathologi c free abdominal or pelvic fluid. Endovaginal scanning: Uterus: This patient is status post hysterectomy. Along the left aspect of the vaginal cuff, there is a 3 mm hyperechoic focus seen. No abnormal cyst can be seen involving the vaginal cuff. No abnormal vascularity can be seen involving the vaginal cuff. Ovaries: Neither ovary is seen. No adnexal masses are seen on either side. IMPRESSION: Status post hysterectomy, without an imaging explanation found for the patient's presenting history. There is a 3 mm hyperechoic focus seen along the left aspect of the vaginal cuff, which is most likel y incidental and felt unlikely to be related to the patient's presenting history. Reviewed by: Ernesto Lemon MD on 10/16/2020 3:33 PM [place] Approved by: Ernesto Lemon MD on 10/16/2020 3:33 PM [facility] Station ID: [id number]
== END 2020-10-16 14:23 | disposition home or self-care (01) ==
LOC: DI 14:22
PROVIDERS: ATTEND Obstetrics & Gynecology
DX: N89.8 Other specified noninflammatory disorders of vagina (principal)

== ENCOUNTER 2021-01-05 08:00 | Outpatient (CLI) | payer MEDICARE, OTHER ==
[2021-01-05 18:40] LABS: BILIRUBIN,URINE NEGATIVE (NEGATIVE); GLUCOSE, URINE (UA) NEGATIVE (NEGATIVE); KETONES,URINE (UA) NEGATIVE (NEGATIVE); LEUKOCYTE ESTERASE, URINE SMALL (NEGATIVE); NITRITE,URINE NEGATIVE (NEGATIVE); OCCULT BLOOD,URINE NEGATIVE (NEGATIVE); PROTEIN,URINE NEGATIVE (NEGATIVE); UROBILINOGEN,URINE 0.2 (NORMAL) E.U./dL (NORMAL)
[2021-01-05 18:45] LABS: CLARITY,URINE HAZY (CLEAR)
[2021-01-05 18:56] LABS: BACTERIA,URINE Few /HPF (None Seen); MUCUS,URINE Few Strands; RBC,URINE 0-5 /HPF (0-5); SQUAMOUS EPITHELIAL CELL,UR FEW Squamous (<= Few)
== END 2021-01-05 23:59 | disposition home or self-care (01) ==
LOC: LAB.R 08:00
PROVIDERS: ATTEND Nurse Practitioner
DX: R35.0 Frequency of micturition (principal)
CPT/HCPCS: 81001; 87086

== ENCOUNTER 2021-06-24 10:06 | Outpatient (CLI) | payer MEDICARE, OTHER ==
--- NOTE | 2021-06-27 09:19 | Mammography Report ---
BILATERAL DIGITAL DIAGNOSTIC MAMMOGRAM 3D/2D: 06/24/2021 CLINICAL: Diffuse left breast pain. Comparison is made to exams dated: 06/14/2020 mamm[facility] - [facility], [facility], and [facility]/2017 mammogram - [place]. There are scattered fibroglandular elements in both breast s. The patient is status post lumpectomy left breast in the superior medial quadrant. There are stable benign surgical clips and area of calcified fat necrosis in the left breast in the superior medial qu adrant. There also are stable benign vascular calcifications in both breasts. No significant masses, calcifications, or other findings are seen in either breast. IMPRESSION: BENIGN There is no mammographic evidence of malignancy. No changes in either breast and no explaination for diffuse breast pain. Clinical evaluation of other etiologies of left chest pain is recommended. Return to annual mammogram screening schedule is recommended. Findings and recommendations were conveyed to the patient at time of exam. This exam was interpreted at Station ID: [id number]. NOTE: For mammograms, a report in lay terms will be sent to the patient. Approximately 15% of breast malignancies will not be visualized mammographically. In the management of a palpable breast mass, a negative mammogram must not discourage biopsy of a clinically suspicious lesion. Electronically Signed By: Kristin sanchez/:06/24/2021 10:51:24 ACR BI-RADS Category 2: Benign Finding(s) 3342F PARENCHYMAL PATTERN: (A) - The breast(s) demonstrate(s) scattered fibroglandular densities. BI-RADS CATEGORY: (2) - 2 Mammogram [id number] return to screening LATERALITY: (B)
== END 2021-06-24 10:07 | disposition home or self-care (01) ==
LOC: DI 10:06
PROVIDERS: ATTEND Family Medicine
DX: N64.4 Mastodynia (principal); Z85.3 Personal history of malignant neoplasm of breast

== ENCOUNTER 2022-12-13 10:07 | Outpatient (CLI) | payer MEDICARE, OTHER ==
--- NOTE | 2022-12-14 10:22 | Mammography Report ---
BILATERAL DIGITAL SCREENING MAMMOGRAM 3D/2D: 12/13/2022 CLINICAL: Routine screening. Personal history of left breast cancer. Comparison is made to exams dated: 06/24/2021 mammogram, 06/14/2020 mammogram - [facility], 12/25/2018 mammogram, and 12/05/2017 mammogram - [facility]. There are scattered areas of fibroglandular density in both breasts (category b / 25%-50% glandular t issue). There is a stable benign calcification in both breasts. There also are benign post operative finding s in the left breast. No significant masses, calcifications, or other findings are seen in either breast. There has been no significant interval change. IMPRESSION: BENIGN There is no mammographic evidence of malignancy. A 1 year screening mammogram is recommended. This exam was interpreted at Station ID: [id number]. NOTE: For mammograms, a report in lay terms will be sent to the patient. Approximately 15% of breast malignancies will not be visualized mammographically. In the management of a palpable breast mass, a negative mammogram must not discourage biopsy of a clinically suspicious lesion. Electronically Signed By: Karthikeyan bright/feliciano:12/13/2022 14:23:00 letter sent: No_Letter ACR BI-RADS Category 2: Benign Finding(s) 3342F PARENCHYMAL PATTERN: (A) - The breast(s) demonstrate(s) scattered fibroglandular densities. BI-RADS CATEGORY: (2) - 2 Mammogram [id number] 1 year screening LATERALITY: (B)
== END 2022-12-13 10:08 | disposition home or self-care (01) ==
LOC: DI 10:07
PROVIDERS: ATTEND Nurse Practitioner Family
DX: Z12.31 Encounter for screening mammogram for malignant neoplasm of breast (principal); Z85.3 Personal history of malignant neoplasm of breast

== ENCOUNTER 2023-03-22 12:42 | Outpatient (CLI) | payer MEDICARE, OTHER ==
--- NOTE | 2023-03-22 16:44 | DEXA Report ---
PROCEDURE: Dexa Spine and/or Hip INDICATIONS: POST MENOPAUSAL TECHNIQUE: Dual energy x-ray absorptiometry (DXA) was performed on a [employer] System. Regions measur ed are the AP Spine, femoral neck, and if needed forearm. COMPARISON: 06/14/2020 FINDINGS: Lumbar Spine: Bone Mineral Density 1.622 g/cm/cm,T score 3.7. Normal, change from previous 4.0%, significant Left Femoral Neck: Bone Mineral Density 0.810 g/cm/cm, T score -1.6. Osteopenia Left Hip: Bone Mineral Density 0.906 g/cm/cm,T score -0.8. Normal, change from previous -0.7% (T score greater or equal to -1.0: NORMAL) (T score from -1.1 to -2.4: OSTEOPENIA) (T score less than or equal to -2.5 to: OSTEOPOROSIS) Impression: By WHO criteria, this patient has low bone density (osteopenia). Significant interval increase in bone mineral density of the lumbar spine. No change in bone mineral density of the hip. Patients with diagnosis of osteoporosis or osteopenia should have regular bone mineral density assess ment. For those eligible for Medicare, routine testing is allowed once every 2 years. Testing frequ ency can be increased for patients who have rapidly progressing disease or for those who are receivin g medical therapy to restore bone mass. Reviewed by: Kristin Bustos MD on 03/22/2023 4:42 PM PDT Approved by: Kristin Bustos MD on 03/22/2023 4:42 PM PDT Station ID: [id number]
== END 2023-03-22 12:43 | disposition home or self-care (01) ==
LOC: DI 12:42
PROVIDERS: ATTEND Nurse Practitioner Family
DX: M85.88 Other specified disorders of bone density and structure, other site (principal); Z78.0 Asymptomatic menopausal state